=== PATIENT | male | born 1945 | race Two or more races ===

== ENCOUNTER 2021-11-11 01:26 | Emergency (ER) | payer OTHER ==
[~2021-11-11] VITALS: Ht 167.6 cm; Wt 77.1 kg
[2021-11-11 01:54] VITALS: BP 130/61
== END 2021-11-11 02:59 | disposition left against medical advice (07) ==
LOC: ER 01:26
DX: M54.50 Low back pain, unspecified (principal); R07.81 Pleurodynia; Z53.21 Procedure and treatment not carried out due to patient leaving prior to being seen by health care provider